=== PATIENT | female | born 1995 | race Two or more races ===

== ENCOUNTER 2021-04-15 07:33 | Emergency (ER) | payer MEDICAID, OTHER ==
[~2021-04-15] VITALS: Ht 160 cm; Wt 64.9 kg
[~2021-04-15 07:33] MED LIST: prenata PO
[2021-04-15 07:48] VITALS: BP 104/62
[2021-04-15] MEDS ORDERED: cefTRIAXone SOD 1,000 MG VL IM ONE (08:15)
[2021-04-15 08:23] LABS: Urine Bacteria FEW /hpf (None Seen); Urine Blood 2+ /uL (Negative); Urine Budding Yeast LOADED /hpf (None Seen); Urine Specific Gravity 1.015 (1.001-1.035); Urine WBC 633 /hpf (0 - 5); Urine WBC Clumps PRESENT /hpf (None Seen)
== END 2021-04-15 08:45 | disposition home or self-care (01) ==
LOC: ER 07:33
DX: N39.0 Urinary tract infection, site not specified (principal)
CPT/HCPCS: 81001; 81025; 96372; 99283; J0696

== ENCOUNTER 2022-03-24 07:46 | Emergency (ER) | payer OTHER ==
[~2022-03-24] VITALS: Ht 160 cm; Wt 65.8 kg
[2022-03-24 08:41] LABS: Urine Bacteria NONE SEEN /hpf (None Seen); Urine Blood Negative /uL (Negative); Urine Specific Gravity 1.011 (1.001-1.035); Urine WBC 5 /hpf (0 - 5)
[2022-03-24 08:54] VITALS: BP 107/68
[2022-03-24] MEDS ORDERED: KETOROLAC TROMETH 60MG/2ML VIAL IM ONE (09:00)
[2022-03-24] MEDS ORDERED: CIPR-173 PO (09:27)
[2022-03-24] MEDS ORDERED: IBUP800T27 PO (09:27)
== END 2022-03-24 09:32 | disposition home or self-care (01) ==
LOC: ER 07:46
DX: S39.012A Strain of muscle, fascia and tendon of lower back, initial encounter (principal); N39.0 Urinary tract infection, site not specified; Z79.1 Long term (current) use of non-steroidal anti-inflammatories (NSAID); Z79.2 Long term (current) use of antibiotics; X58.XXXA Exposure to other specified factors, initial encounter; Y93.89 Activity, other specified; Y92.89 Other specified places as the place of occurrence of the external cause; Y99.8 Other external cause status
CPT/HCPCS: 81001; 96372; 99283; J1885

== ENCOUNTER 2022-03-28 05:41 | Emergency (ER) | payer OTHER ==
[~2022-03-28] VITALS: Ht 160 cm; Wt 65.9 kg
[~2022-03-28 05:41] MED LIST changes: +CIPR-173 PO; +IBUP800T27 PO
[2022-03-28 08:13] VITALS: BP 118/67
[2022-03-28] MEDS ORDERED: methylPREDNISolone SOD SUCC 125 MG/2 ML VL IM ONE (08:30)
[2022-03-28] MEDS ORDERED: CYCL-838 PO (09:05)
== END 2022-03-28 09:14 | disposition home or self-care (01) ==
LOC: ER 05:41
DX: M54.16 Radiculopathy, lumbar region (principal); Z79.1 Long term (current) use of non-steroidal anti-inflammatories (NSAID); Z79.2 Long term (current) use of antibiotics
CPT/HCPCS: 72100; 96372; 99283; J2930

== ENCOUNTER 2023-11-01 08:40 | Emergency (ER) | payer OTHER ==
[~2023-11-01] VITALS: Ht 160 cm; Wt 70.6 kg
[~2023-11-01 08:40] MED LIST changes: +CYCL-838 PO; +IBUP-1456 PO; -IBUP800T27 PO; +VALA1TAB PO
[2023-11-01] MEDS: KETOROLAC TROMETH 30 MG/ML 1ML VIAL IM ONE (10:05)
[2023-11-01] MEDS ORDERED: GABA-1308 PO (10:10)
[2023-11-01] MEDS ORDERED: ACYC5CRE4 TOP (10:10)
[2023-11-01] MEDS ORDERED: IBUP-1456 PO (10:10)
[2023-11-01 10:18] VITALS: BP 119/82; PULSE 76; RESP 18; TEMP 97.6; O2SAT 100
== END 2023-11-01 10:21 | disposition home or self-care (01) ==
LOC: ER 08:40
DX: B02.9 Zoster without complications (principal)
CPT/HCPCS: 96372; 99283; J1885

== ENCOUNTER 2024-03-23 16:06 | Emergency (ER) | payer MEDICAID, OTHER ==
[~2024-03-23] VITALS: Ht 160 cm; Wt 69.7 kg
[~2024-03-23 16:06] MED LIST changes: +ACYC5CRE4 TOP; +GABA-1308 PO
[2024-03-23 16:43] VITALS: BP 114/73; PULSE 75; RESP 18; TEMP 97.9; O2SAT 98
[2024-03-23] MEDS: KETOROLAC TROMETH 60MG/2ML VIAL IM ONE (16:49)
[2024-03-23] MEDS ORDERED: METH-1182 PO (17:31)
== END 2024-03-23 17:37 | disposition home or self-care (01) ==
LOC: ER 16:06
DX: M54.42 Lumbago with sciatica, left side (principal); Z79.899 Other long term (current) drug therapy
CPT/HCPCS: 96372; 99283; J1885

== ENCOUNTER 2024-05-07 07:32 | Emergency (ER) | payer MEDICAID ==
[~2024-05-07] VITALS: Ht 160 cm; Wt 68.9 kg
[~2024-05-07 07:32] MED LIST changes: +METH-1182 PO
[2024-05-07 07:56] VITALS: BP 121/78; PULSE 63; RESP 16; TEMP 97.5; O2SAT 98
[2024-05-07] MEDS: methylPREDNISolone SOD SUCC 125 MG/2 ML VL IM ONE (08:40)
[2024-05-07] MEDS: KETOROLAC TROMETH 30 MG/ML 1ML VIAL IM ONE (08:40)
[2024-05-07] MEDS ORDERED: METH4PAK PO (08:55)
[2024-05-07] MEDS ORDERED: NAPR-746 PO (08:55)
== END 2024-05-07 08:56 | disposition home or self-care (01) ==
LOC: ER 07:32
DX: M54.12 Radiculopathy, cervical region (principal); Z79.899 Other long term (current) drug therapy; Z79.1 Long term (current) use of non-steroidal anti-inflammatories (NSAID)
CPT/HCPCS: 96372; 99284; J1885; J2919